=== PATIENT | male | born 2000 | race Two or more races ===

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

== ENCOUNTER 2020-06-21 02:34 | Emergency (ER) | payer SELFPAY ==
[~2020-06-21] VITALS: Ht 175.3 cm; Wt 77.3 kg
[~2020-06-21 02:34] MED LIST: ONDA4TAB10 PO
[2020-06-21] MEDS ORDERED: ACETAMINOPHEN 500 MG TABLET PO ONE (03:00)
[2020-06-21 03:10] LABS: BASO # 0.1 x10^3/uL (0.0-0.2); BASO % 1 % (0-3); EOS # 0.3 x10^3/uL (0.0-0.7); EOS % 3 % (0-3); HEMATOCRIT 49.5 % (39.0-53.0); LYMPH # 4.7 x10^3/uL (1.0-4.8); LYMPH % 40 % (24-48); MEAN CORPUSCULAR HEMOGLOBIN 30 pg (25-35); MEAN CORPUSCULAR HGB CONC 34 g/dL (31-37); MEAN CORPUSCULAR VOLUME 88 fL (79-100); MONO # 0.6 x10^3/uL (0.0-1.1); MONO % 6 % (0-9); NEUT % 51 % (31-73); PLATELET COUNT 300 x10^3/uL (140-400); RED BLOOD COUNT 5.66 x10^6/uL (4.30-5.70); RED CELL DISTRIBUTION WIDTH 13.3 % (11.5-14.5); WHITE BLOOD COUNT 11.6 x10^3/uL (4.0-11.0)
--- NOTE | 2020-06-21 03:30 | RAD ---
EXAM: XR CHEST 2V 06/21/2020 2:59 AM CLINICAL INDICATION: Chest pain COMPARISON: None TECHNIQUE: PA and lateral views of the chest FINDINGS: The heart and mediastinum are normal. Lungs are well-expanded and clear. No consolidatio n, pleural effusion, or pneumothorax. Pulmonary vascularity is normal. The thoracic skeleton is int act. IMPRESSION: Normal chest radiograph. Electronically signed by: Sondra Almazan MD (06/21/2020 3:28 AM) [id number]
[2020-06-21 03:41] LABS: ALBUMIN 4.6 g/dL (3.4-5.0); ALBUMIN/GLOBULIN RATIO 1.3 (1.0-1.7); CALCIUM 9.8 mg/dL (8.5-10.1); CREATININE 1.2 mg/dL (0.7-1.3); POTASSIUM 3.6 mmol/L (3.5-5.1); TOTAL BILIRUBIN 0.5 mg/dL (0.2-1.0); TOTAL PROTEIN 8.2 g/dL (6.4-8.2)
--- NOTE | 2020-06-21 04:34 | PHYS DOC ---
Past Medical History Past Medical History: No Pertinent History Past Surgical History: No Surgical History, Tonsillectomy Smoking Status: Never Smoker Alcohol Use: None Drug Use: None Social History Narrative: Every other day Adult General Chief Complaint Chief Complaint: CHEST PAIN-CARDIAC NATURE HPI HPI Patient is a 19 year old male with no significant past medical history presents emergency department complaining of new onset of chest pain. Patient states he has been having left anterior chest wall pain for approximately 1 week. States it started spontaneously and does not recall any trauma or injury to the area. Describes a sharp pain that over the left anterior chest without radiation. Denies any pleurisy. Denies any history of similar symptoms. Denies any fever, chills, nausea, vomiting, shortness of breath, cough Review of Systems Review of Systems Constitutional: Denies fever or chills [] Eyes: Denies change in visual acuity, redness, or eye pain [] HENT: Denies nasal congestion or sore throat [] Respiratory: Denies cough or shortness of breath [] Cardiovascular: No additional information not addressed in HPI [] GI: Denies abdominal pain, nausea, vomiting, bloody stools or diarrhea [] : Denies dysuria or hematuria [] Musculoskeletal: Denies back pain or joint pain [] Integument: Denies rash or skin lesions [] Neurologic: Denies headache, focal weakness or sensory changes [] Endocrine: Denies polyuria or polydipsia [] All other systems were reviewed and found to be within normal limits, except as documented in this note. Current Medications Current Medications Current Medications Medications (Trade) Dose Ordered Sig/Chad Start Time Stop Time Status Last Admin Dose Admin Acetaminophen (Tylenol) 1,000 mg 1X ONCE 06/21/20 03:00 06/21/20 03:01 DC 06/21/20 03:26 1,000 MG Allergies Allergies Allergies Coded Allergies Type Severity Reaction Last Updated Verified No Known Drug Allergies 05/04/17 No Physical Exam Physical Exam Constitutional: Well developed, well nourished, no acute distress, non-toxic appearance. [] HENT: Normocephalic, atraumatic, bilateral external ears normal, oropharynx moist, no oral exudates, nose normal. [] Eyes: PERRLA, EOMI, conjunctiva normal, no discharge. [] Neck: Normal range of motion, no tenderness, supple, no stridor. [] Cardiovascular:Heart rate regular rhythm, no murmur [] Lungs & Thorax: Bilateral breath sounds clear to auscultation left anterior chest wall tenderness with small area of palpable muscle spasm Abdomen: Bowel sounds normal, soft, no tenderness, no masses, no pulsatile masses. [] Skin: Warm, dry, no erythema, no rash. [] Back: No tenderness, no CVA tenderness. [] Extremities: No tenderness, no cyanosis, no clubbing, ROM intact, no edema. [] Neurologic: Alert and oriented X 3, normal motor function, normal sensory function, no focal deficits noted. [] Psychologic: Affect normal, judgement normal, mood normal. [] Current Patient Data Vital Signs Vital Signs Date Time Temp Pulse Resp B/P (MAP) Pulse Ox O2 Delivery O2 Flow Rate FiO2 06/21/20 02:35 97.6 76 20 178/91 (120) 99 Room Air 97.6 Lab Values Laboratory Tests Test 06/21/20 02:45 White Blood Count 11.6 x10^3/uL (4.0-11.0) H Red Blood Count 5.66 x10^6/uL (4.30-5.70) Hemoglobin 17.0 g/dL (13.0-17.5) Hematocrit 49.5 % (39.0-53.0) Mean Corpuscular Volume 88 fL (79-100) Mean Corpuscular Hemoglobin 30 pg (25-35) Mean Corpuscular Hemoglobin Concent 34 g/dL (31-37) Red Cell Distribution Width 13.3 % (11.5-14.5) Platelet Count 300 x10^3/uL (140-400) Neutrophils (%) (Auto) 51 % (31-73) Lymphocytes (%) (Auto) 40 % (24-48) Monocytes (%) (Auto) 6 % (0-9) Eosinophils (%) (Auto) 3 % (0-3) Basophils (%) (Auto) 1 % (0-3) Neutrophils # (Auto) 6.0 x10^3/uL (1.8-7.7) Lymphocytes # (Auto) 4.7 x10^3/uL (1.0-4.8) Monocytes # (Auto) 0.6 x10^3/uL (0.0-1.1) Eosinophils # (Auto) 0.3 x10^3/uL (0.0-0.7) Basophils # (Auto) 0.1 x10^3/uL (0.0-0.2) Sodium Level 141 mmol/L (136-145) Potassium Level 3.6 mmol/L (3.5-5.1) Chloride Level 103 mmol/L (98-107) Carbon Dioxide Level 25 mmol/L (21-32) Anion Gap 13 (6-14) Blood Urea Nitrogen Pending Creatinine 1.2 mg/dL (0.7-1.3) Estimated GFR (Cockcroft-Gault) 78.0 BUN/Creatinine Ratio 12 (6-20) Glucose Level 98 mg/dL (70-99) Calcium Level 9.8 mg/dL (8.5-10.1) Total Bilirubin 0.5 mg/dL (0.2-1.0) Aspartate Amino Transferase (AST) 22 U/L (15-37) Alanine Aminotransferase (ALT) 23 U/L (16-63) Alkaline Phosphatase 69 U/L (46-116) Total Protein 8.2 g/dL (6.4-8.2) Albumin 4.6 g/dL (3.4-5.0) Albumin/Globulin Ratio 1.3 (1.0-1.7) Lipase 173 U/L (73-393) Laboratory Tests 06/21/20 02:45 Laboratory Tests 06/21/20 02:45 EKG EKG [] Radiology/Procedures Radiology/Procedures [] Course & Med Decision Making Course & Med Decision Making Pertinent Labs and Imaging studies reviewed. (See chart for details) 19M presenting with new onset of left anterior chest wall pain. Less likely to be costochondritis or muscle spasm. Will obtain basic labs and chest x-ray and EKG and reevaluate. 04:32 - Labs and CXR negative, EKG reviewed and unremarkable. at this time will discharge home. I spoken with the patient and her caregivers. I explained the patient's condition, diagnoses and treatment plan based on the information available to me at this time. I have answered the patient and her caregiver's questions and addressed any concerns. The patient and her caregivers have a good understanding of patient's diagnosis, condition and treatment plan as can be expected at this point. Vital signs have been stable. Patient's condition is stable and appropriate for discharge from the emergency department. Patient will pursue further outpatient evaluation with primary care physician or other designated or consulting physician as outlined in the discharge instructions. The patient and/or caregivers are agreeable to this plan of care and follow-up instructions have been explained in detail. The patient and/or caregivers have received these instructions in written form and have expressed an understanding of the discharge instructions. The patient and/or caregivers are aware that any significant change of condition or worsening of symptoms should prompt immediate return to this or the closest emergency department or call to 911. Dragon Disclaimer Dragon Disclaimer This electronic medical record was generated, in whole or in part, using a voice recognition dictation system. Departure Departure Impression: Primary Impression: Chest wall pain Disposition: 01 DC HOME SELF CARE/HOMELESS Condition: GOOD Referrals: DAVID DONOVAN (PCP) Patient Instructions: Chest Wall Pain KALYN STANFORD MD Jun 21, 2020 04:34
[2020-06-21 04:51] VITALS: BP 138/74
--- NOTE | 2020-06-23 16:35 | EKG ---
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
== END 2020-06-21 04:51 | disposition home or self-care (01) ==
LOC: ER 02:34
DX: R07.89 Other chest pain (principal)
CPT/HCPCS: 36415; 71046; 80053; 83690; 85025; 93005; 99285-25

== ENCOUNTER 2020-06-25 18:35 | Observation (INO) | payer SELFPAY ==
[~2020-06-25] VITALS: Ht 175.3 cm; Wt 69.5 kg
--- NOTE | 2020-06-25 20:07 | PHYS DOC ---
Past Medical History Past Medical History: No Pertinent History Past Surgical History: No Surgical History, Tonsillectomy Smoking Status: Never Smoker Alcohol Use: None Drug Use: None Adult General Chief Complaint Chief Complaint: CONSTIPATION HPI HPI Patient is a 19 year old male who denies any significant past medical history presents emergency department complaint of new onset of constipation. Patient states he has not been able to have a significant bowel movement for 5 days. Denies any history of similar symptoms. Denies any nausea, vomiting, fever, c hills. No obstipation. Review of Systems Review of Systems Constitutional: Denies fever or chills [] Eyes: Denies change in visual acuity, redness, or eye pain [] HENT: Denies nasal congestion or sore throat [] Respiratory: Denies cough or shortness of breath [] Cardiovascular: No additional information not addressed in HPI [] GI: Denies abdominal pain, nausea, vomiting, bloody stools or diarrhea [] : Denies dysuria or hematuria [] Musculoskeletal: Denies back pain or joint pain [] Integument: Denies rash or skin lesions [] Neurologic: Denies headache, focal weakness or sensory changes [] Endocrine: Denies polyuria or polydipsia [] All other systems were reviewed and found to be within normal limits, except as documented in this note. Current Medications Current Medications Current Medications Medications (Trade) Dose Ordered Sig/Chad Start Time Stop Time Status Last Admin Dose Admin Polyethylene Glycol (miraLAX PACKET) 17 gm 1X ONCE 06/25/20 21:00 06/25/20 21:01 DC 06/25/20 20:51 17 GM Allergies Allergies Allergies Coded Allergies Type Severity Reaction Last Updated Verified No Known Drug Allergies 05/04/17 No Physical Exam Physical Exam Constitutional: Well developed, well nourished, no acute distress, non-toxic appearance. [] HENT: Normocephalic, atraumatic, bilateral external ears normal, oropharynx moist, no oral exudates, nose normal. [] Eyes: PERRLA, EOMI, conjunctiva normal, no discharge. [] Neck: Normal range of motion, no tenderness, supple, no stridor. [] Cardiovascular:Heart rate regular rhythm, no murmur [] Lungs & Thorax: Bilateral breath sounds clear to auscultation [] Abdomen: Bowel sounds normal, soft, no tenderness, no masses, no pulsatile masses. [] Skin: Warm, dry, no erythema, no rash. [] Back: No tenderness, no CVA tenderness. [] Extremities: No tenderness, no cyanosis, no clubbing, ROM intact, no edema. [] Neurologic: Alert and oriented X 3, normal motor function, normal sensory function, no focal deficits noted. [] Psychologic: Affect normal, judgement normal, mood normal. [] Current Patient Data Vital Signs Vital Signs Date Time Temp Pulse Resp B/P (MAP) Pulse Ox O2 Delivery O2 Flow Rate FiO2 06/25/20 18:35 98.4 130 20 138/78 (98) 99 Room Air 98.4 EKG EKG [] Radiology/Procedures Radiology/Procedures [] Course & Med Decision Making Course & Med Decision Making Pertinent Labs and Imaging studies reviewed. (See chart for details) 19M presenting with new onset of constipation for 5 days. Will obtain an x-ray to confirm there is no significant evidence of small bowel obstruction. This is negative we will treat the patient symptomatic. 21:26 -x-ray does demonstrate some moderate stool burden but no significant air in the rectum. There is some concern for possible fecal impaction with the patient does not have any tenderness to the area. This point will discharge home with further bowel regimen and instructed the patient to return if he has any worsening of his symptoms. Dragon Disclaimer Dragon Disclaimer This electronic medical record was generated, in whole or in part, using a voice recognition dictation system. Departure Departure Impression: Primary Impression: Acute constipation Referrals: DAVID DONOVAN (PCP) Patient Instructions: Constipation, Adult Additional Instructions: EMERGENCY DEPARTMENT GENERAL DISCHARGE INSTRUCTIONS Thank you for coming to [facility] Emergency Department (ED) today and trusting us with you care. We trust that you had a positive experience in our Emergency Department. If you wish to speak to the department management, you may call the Director at [phone]. YOUR FOLLOW UP INSTRUCTIONS ARE FOLLOWS: 1. Do you have a private Doctor? If you do not have a private doctor, please ask for a resource list of physicians or clinics that may be able to assist you with follow up care. 2. The Emergency Physicain has interpreted your x-rays. The X-Ray specialist will also review them. If there is a change in the findings, you will be notified in 48 hours when at all possible. 3. A lab test or culture has been done, your results will be reviewed and you will be notified if you need a change in treatment. ADDITIONAL INSTRUCTIONS AND INFORMATION: 1. Your care today has been supervised by a physician who is specially trained in emergency care. Many problems require more than one evaluation for a complete diagnosis and treatment. We recommend that you schedule your follow up appointment as recommended to ensure complete treatment of you illness or injury. If you are unable to obtain follow up care and continue to have a problem, or if your condition worsens, we recommend that you return to the ED. 2. We are not able to safely determine your condition over the phone nor are we able to give sound medical advice over the phone. For these safety reasons, if you call for medical advice we will ask you to come to the ED for further evaluation. 3. If you have any questions regarding these discharge instructions please call the ED at [phone]. SAFETY INFORMATION: In the interest of safety, wellness, and injury prevention; we encourage you to wear your sealbelt, if you smoke; quite smoking, and we encourage family to use a protective helmet for bicycling and other sporting events that present an increased risk for head injury. IF YOUR SYMPTOMS WORSEN OR NEW SYMPTOMS DEVELOP, OR YOU HAVE CONCERNS ABOUT YOUR CONDITION; OR IF YOUR CONDITION WORSENS WHILE YOU ARE WAITING FOR YOUR FOLLOW UP AP POINTMENT; EITHER CONTACT YOUR PRIMARY CARE DOCTOR, THE PHYSICIAN WHOSE NAME AND NUMBER YOU WERE GIVEN, OR RETURN TO THE ED IMMEDIATELY. Scripts Polyethylene Glycol 3350 (MIRALAX) 119 Gm Powder 17 GM PO BID for constipation, #527 GM 0 Refills dissolve in water Prov: KALYN STANFORD MD 06/25/20 KALYN STANFORD MD Jun 25, 2020 20:07
--- NOTE | 2020-06-25 20:19 | RAD ---
EXAM: Supine AP view of the abdomen DATE: 06/25/2020 8:07 PM INDICATION: constipation COMPARISON: No Prior FINDINGS: No abnormal small or large bowel dilatation. Moderate colonic stool content. No abnormal soft tissu e mass effect. No suspicious calcifications are seen. Evaluation for free intraperitoneal gas is li mited on this supine exam. IMPRESSION: 1. No evidence for bowel obstruction. 2. Moderate colonic stool content. Electronically signed by: Lico Rush MD (06/25/2020 8:16 PM) [facility]
[2020-06-25] MEDS ORDERED: POLYETHYLENE GLYCOL 3350 17 GM PACKET. PO ONE (21:00)
[2020-06-25] MEDS ORDERED: POLY119P4 PO (21:32)
[2020-06-25 23:01] LABS: BASO % 0 % (0-3); EOS # 0.1 x10^3/uL (0.0-0.7); EOS % 1 % (0-3); HEMATOCRIT 48.9 % (39.0-53.0); HEMOGLOBIN 16.7 g/dL (13.0-17.5); LYMPH # 2.4 x10^3/uL (1.0-4.8); LYMPH % 20 % (24-48); MEAN CORPUSCULAR HEMOGLOBIN 30 pg (25-35); MEAN CORPUSCULAR HGB CONC 34 g/dL (31-37); MEAN CORPUSCULAR VOLUME 87 fL (79-100); MONO # 0.5 x10^3/uL (0.0-1.1); MONO % 5 % (0-9); NEUT % 75 % (31-73); PLATELET COUNT 322 x10^3/uL (140-400); RED BLOOD COUNT 5.63 x10^6/uL (4.30-5.70); RED CELL DISTRIBUTION WIDTH 13.4 % (11.5-14.5); WHITE BLOOD COUNT 12.1 x10^3/uL (4.0-11.0)
[2020-06-25 23:11] LABS: CALCIUM 10.8 mg/dL (8.5-10.1); CREATININE 1.2 mg/dL (0.7-1.3); POTASSIUM 3.7 mmol/L (3.5-5.1)
[2020-06-25 23:16] LABS: ALBUMIN 5.1 g/dL (3.4-5.0); ALBUMIN/GLOBULIN RATIO 1.4 (1.0-1.7); MAGNESIUM 1.9 mg/dL (1.8-2.4); TOTAL BILIRUBIN 0.8 mg/dL (0.2-1.0); TOTAL PROTEIN 8.7 g/dL (6.4-8.2)
[2020-06-25] MEDS ORDERED: IV NORMAL SALINE 1000ML BAG 1,000 ML IV ONE (23:30)
[2020-06-25] MEDS ORDERED: ACETAMINOPHEN 500 MG TABLET PO ONE (23:30)
--- NOTE | 2020-06-25 23:43 | RAD ---
XR CHEST 1V Clinical Indication: Reason: chest pain /two-view chest, Comparison: Two-view chest June 21, 2020. Findings: The cardiomediastinal silhouette is normal. Lungs are clear. There is no pneumothorax. No pleural eff usion is appreciated. No acute bone abnormality. IMPRESSION: No acute cardiopulmonary process. Electronically signed by: Dinesh Ramon MD (06/25/2020 11:41 PM) [facility]
[2020-06-26 00:05] LABS: SALIC < 2.8 mg/dL (2.8-20.0)
[2020-06-26 00:08] LABS: BARBITURATES NEG (NEG); BENZODIAZEPINES NEG (NEG); CANNABINOIDS POS (NEG); COCAINE NEG (NEG); METHADONE NEG (NEG); OPIATES NEG (NEG); PHENCYCLIDINE NEG (NEG)
[2020-06-26 00:11] LABS: AMPHETAMINE/METHAMPHETAMINE NEG (NEG)
[2020-06-26] MEDS ORDERED: MORPHINE SULFATE 4 MG/ML VIAL. IV ONE (00:15)
[2020-06-26] MEDS ORDERED: CONTRAST GIVEN. MC PRN (01:00)
[2020-06-26] MEDS ORDERED: IOHEXOL 300 MG/ML 100ML VIAL. IV ONE (01:30)
--- NOTE | 2020-06-26 01:31 | RAD ---
PQRS Compliance Statement: One or more of the following individualized dose reduction techniques were utilized for this examinat ion: 1. Automated exposure control 2. Adjustment of the mA and/or kV according to patient size 3. Use of iterative reconstruction technique CT CHEST+ABD+PELVIS W Clinical Indication: Reason: chest pain, constipation Comparison: CT abdomen and pelvis with contrast, May 04, 2017. Technique: Helical CT imaging of the abdomen and pelvis is performed after 75 cc of Omnipaque 300 IV contrast. Oral contrast not administered. Findings: Thyroid is symmetric. Residual thymus in the anterior mediastinum. The great vessels are normal calib er. There is no adenopathy in the chest. Cardiac size normal, no pericardial effusion. The central airways are patent. No pleural abnormality. The lungs are clear. The liver, gallbladder, spleen, pancreas, adrenal glands, abdominal aorta, and kidneys are normal. No obvious abnormality of the stomach. There is no dilated small bowel. Sigmoid colon is decompressed , limiting evaluation. No colon wall thickening is identified. The appendix is not identified, no sec ondary signs of appendicitis. There is no abdominal adenopathy or free fluid. Urinary bladder is normal. The prostate and seminal vesicles are normal. Thoracolumbar spine alignment is maintained. No acute bone abnormality. IMPRESSION: No acute abnormality of the chest, abdomen, or pelvis. Electronically signed by: Dinesh Ramon MD (06/26/2020 1:29 AM) [facility]
[2020-06-26 02:16] LABS: CALCIUM 9.6 mg/dL (8.5-10.1); CREATININE 1.2 mg/dL (0.7-1.3); POTASSIUM 4.2 mmol/L (3.5-5.1)
[2020-06-26 02:21] LABS: ALBUMIN 4.3 g/dL (3.4-5.0); ALBUMIN/GLOBULIN RATIO 1.3 (1.0-1.7); TOTAL BILIRUBIN 0.7 mg/dL (0.2-1.0); TOTAL PROTEIN 7.5 g/dL (6.4-8.2)
[2020-06-26] MEDS ORDERED: ACETAMINOPHEN 500 MG TABLET PO ONE (02:30)
[2020-06-26] MEDS ORDERED: ONDANSETRON PF 4 MG/2 ML VIAL. IV PRN (02:45)
[2020-06-26] MEDS ORDERED: MORPHINE SULFATE 4 MG/ML VIAL. IV PRN (02:45)
[2020-06-26 03:20] VITALS: BP 152/80
[2020-06-26] MEDS ORDERED: ALPRAZolam 1 MG TABLET PO PRN (04:30)
[2020-06-26] MEDS ORDERED: MAGNESIUM CITRATE 296 ML SOLUTION. PO ONE (05:00)
--- NOTE | 2020-06-26 05:23 | EKG ---
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
[2020-06-26 07:00] VITALS: BP 140/76
[2020-06-26] MEDS ORDERED: ACETAMINOPHEN 325 MG TABLET. PO PRN (10:15)
[2020-06-26 11:00] VITALS: BP 149/61
--- NOTE | 2020-06-26 11:47 | PDOC2 ---
GI CONSULT Date of Service: DATE: 06/26/20 TIME: 11:47 Reason For Consult: constipation HPI: HPI: 19 y/o male to ER last night w/ lower abdominal pain and constipation x 5 days. Apparently issues w/ tachycardia and left chest pain after taking Miralax and Mag Citrate (drank half a bottle), admitted to see cardiology. Since admission has had one "pretty good" stool. No change in abdominal discomfort. No h/o constipation. Denies precipitating events. No reflux, dysphagia, n/v, chronic abd pain, hematochezia, melena, bloating, change in appetite (eats once a day because sleeps til 3:00 p.m. and goes to bed at 4:0 a.m.) or weight loss. No previous EGD or colonoscopy. No GB, liver, pancreas, or PUD history. No NSAIDs. Daily marijuana. Mother Gissel present. FH: Family History: Cancer (MGM - CLL) Social History: Smoke: No ALCOHOL: none Drugs: Marijuana (daily) ROS: GEN: Denies fevers, chills, sweats HEENT: Denies blurred vision, sore throat CV: +CP RESP: Denies shortness of air, cough GI: Per HPI : Denies hematuria, dysuria ENDO: Denies weight changes NEURO: Denies confusion, dizziness MSK: Denies weakness, joint pain/swelling SKIN: Denies jaundice, pruritus Vitals: Vitals: Vital Signs Date Time Temp Pulse Resp B/P (MAP) Pulse Ox O2 Delivery O2 Flow Rate FiO2 06/26/20 07:00 96.8 106 20 140/76 (97) 100 Room Air 96.8 Labs: Labs: Laboratory Tests Test 06/25/20 19:05 06/25/20 22:40 06/26/20 02:00 Urine Opiates Screen Neg (NEG) Urine Methadone Screen Neg (NEG) Urine Barbiturates Neg (NEG) Urine Phencyclidine Screen Neg (NEG) Urine Amphetamine/Methamphetamine Neg (NEG) Urine Benzodiazepines Screen Neg (NEG) Urine Cocaine Screen Neg (NEG) Urine Cannabinoids Screen Pos (NEG) Urine Ethyl Alcohol Neg (NEG) White Blood Count 12.1 x10^3/uL (4.0-11.0) Red Blood Count 5.63 x10^6/uL (4.30-5.70) Hemoglobin 16.7 g/dL (13.0-17.5) Hematocrit 48.9 % (39.0-53.0) Mean Corpuscular Volume 87 fL (79-100) Mean Corpuscular Hemoglobin 30 pg (25-35) Mean Corpuscular Hemoglobin Concent 34 g/dL (31-37) Red Cell Distribution Width 13.4 % (11.5-14.5) Platelet Count 322 x10^3/uL (140-400) Neutrophils (%) (Auto) 75 % (31-73) Lymphocytes (%) (Auto) 20 % (24-48) Monocytes (%) (Auto) 5 % (0-9) Eosinophils (%) (Auto) 1 % (0-3) Basophils (%) (Auto) 0 % (0-3) Neutrophils # (Auto) 9.0 x10^3/uL (1.8-7.7) Lymphocytes # (Auto) 2.4 x10^3/uL (1.0-4.8) Monocytes # (Auto) 0.5 x10^3/uL (0.0-1.1) Eosinophils # (Auto) 0.1 x10^3/uL (0.0-0.7) Basophils # (Auto) 0.0 x10^3/uL (0.0-0.2) D-Dimer (Sowmya) < 0.27 ug/mlFEU Sodium Level 141 mmol/L (136-145) 139 mmol/L (136-145) Potassium Level 3.7 mmol/L (3.5-5.1) 4.2 mmol/L (3.5-5.1) Chloride Level 101 mmol/L (98-107) 102 mmol/L (98-107) Carbon Dioxide Level 21 mmol/L (21-32) 20 mmol/L (21-32) Anion Gap 19 (6-14) 17 (6-14) Blood Urea Nitrogen 12 mg/dL (8-26) 13 mg/dL (8-26) Creatinine 1.2 mg/dL (0.7-1.3) 1.2 mg/dL (0.7-1.3) Estimated GFR (Cockcroft-Gault) 78.0 78.0 BUN/Creatinine Ratio 10 (6-20) 11 (6-20) Glucose Level 75 mg/dL (70-99) 93 mg/dL (70-99) Lactic Acid Level 1.5 mmol/L (0.4-2.0) Calcium Level 10.8 mg/dL (8.5-10.1) 9.6 mg/dL (8.5-10.1) Magnesium Level 1.9 mg/dL (1.8-2.4) Total Bilirubin 0.8 mg/dL (0.2-1.0) 0.7 mg/dL (0.2-1.0) Aspartate Amino Transf (AST/SGOT) 15 U/L (15-37) 16 U/L (15-37) Alanine Aminotransferase (ALT/SGPT) 19 U/L (16-63) 18 U/L (16-63) Alkaline Phosphatase 69 U/L (46-116) 62 U/L (46-116) Troponin I Quantitative < 0.017 ng/mL (0.000-0.055) < 0.017 ng/mL (0.000-0.055) Total Protein 8.7 g/dL (6.4-8.2) 7.5 g/dL (6.4-8.2) Albumin 5.1 g/dL (3.4-5.0) 4.3 g/dL (3.4-5.0) Albumin/Globulin Ratio 1.4 (1.0-1.7) 1.3 (1.0-1.7) Salicylates Level < 2.8 mg/dL (2.8-20.0) Salicylate Last Dose Date Unk Salicylate Last Dose Time Unk Thyroid Stimulating Hormone (TSH) 0.714 uIU/mL (0.358-3.74) Allergies: Coded Allergies: No Known Drug Allergies (Unverified , 05/04/17) Medications: Current Medications Medications (Trade) Dose Ordered Sig/Chad Route PRN Reason Start Time Stop Time Status Last Admin Dose Admin Polyethylene Glycol (miraLAX PACKET) 17 gm 1X ONCE PO 06/25/20 21:00 06/25/20 21:01 DC 06/25/20 20:51 Sodium Chloride 1,000 ml @ 1,000 mls/hr 1X ONCE IV 06/25/20 23:30 06/26/20 00:29 DC 06/25/20 22:40 Acetaminophen (Tylenol) 1,000 mg 1X ONCE PO 06/25/20 23:30 06/25/20 23:31 DC 06/25/20 23:25 Morphine Sulfate (Morphine Sulfate) 4 mg 1X ONCE IV 06/26/20 00:15 06/26/20 00:16 DC 06/26/20 00:10 Iohexol (Omnipaque 300 Mg/ml) 75 ml 1X ONCE IV 06/26/20 01:30 06/26/20 01:31 DC 06/26/20 00:55 Acetaminophen (Tylenol) 1,000 mg 1X ONCE PO 06/26/20 02:30 06/26/20 02:31 DC 06/26/20 02:00 Alprazolam (Xanax) 1 mg PRN Q8HRS PRN PO ANXIETY / AGITATION 06/26/20 04:30 06/26/20 04:50 Magnesium Citrate (Citroma) 296 ml 1X ONCE PO 06/26/20 05:00 06/26/20 05:02 DC 06/26/20 04:50 Imaging: Imaging: KUB IMPRESSION: 1. No evidence for bowel obstruction. 2. Moderate colonic stool content. CXR IMPRESSION: No acute cardiopulmonary process. C/A/P CT IMPRESSION: No acute abnormality of the chest, abdomen, or pelvis. PE: GEN: NAD - eating biscuits and gravy and eggs HEENT: Atraumatic, PERRL LUNGS: CTAB HEART: RRR when I saw - note some tachycardia in chart ABD: good BS, soft, non-distended, non-specifically tender (?MSK) EXTREMITY: No edema SKIN: No rashes, no jaundice NEURO/PSYCH: A & O 3 A/P: A/P: Lower abdominal pain, new constipation Tachycardia CRC screen - average risk +marijuana -- Labs and imaging unrevealing. Has stooled since admission. Can discuss care home constipation treatment if needed - pt/mother puzzled re: tachycardia after laxatives - will review if any correlation w/ Dr. Costa. Continue per cardiology, primary. RASHAWN MCKINLEY Jun 26, 2020 11:47
--- NOTE | 2020-06-26 12:59 | PDOC2 ---
CARDIAC CONSULT DATE OF CONSULT Date of Consult DATE: 06/26/20 TIME: 12:44 REASON FOR CONSULT Reason for Consult: Chest pain REFERRING PHYSICIAN Referring Physician: Rika SOURCE Source: Chart review, Patient HISTORY OF PRESENT ILLNESS HISTORY OF PRESENT ILLNESS This is a pleasant 19 yo male admitted for complains of constipation. He has not had any BM for almost a week and his appetite has decreased and has tried s everal laxatives including enema, stool softeners and stimulants. No nausea or vomiting. He was in ED and was treated with miralax then Mg citrate and drank half that bottle when he started becoming tachycardic in the 130s prompting him to get admitted for further evaluation including complains of chest pain. Denies any exertional dyspnea nor any chest pain at home. Denies any heartburn. His chest pain is sharp that went to his left chest. This was the same discomfort he had about a week ago when he was in ED not suspected as cardiac. His chest presentation appears to be the same and atypical. He does have occasional palpitations but does not check pulse when this happens. No associated dizziness or passing out. He does however smokes marijuana daily and does not work and plays basketball without difficulty. No ETOH nor any high energy drinks and his mother is in the room ascertained his details. No family history of cardiac related history. He does not take any routine medications. No recent falls or any heavy lifting or MVA. PAST MEDICAL HISTORY Past Medical History No pertinent history PAST SURGICAL HISTORY Past Surgical History: Tonsillectomy FAMILY HISTORY Family History noncontributory to CV SOCIAL HISTORY Smoke: No ALCOHOL: none Drugs: Marijuana Lives: with Family CURRENT MEDICATIONS CURRENT MEDICATIONS Current Medications Medications (Trade) Dose Ordered Sig/Chad Route PRN Reason Start Time Stop Time Status Last Admin Dose Admin Polyethylene Glycol (miraLAX PACKET) 17 gm 1X ONCE PO 06/25/20 21:00 06/25/20 21:01 DC 06/25/20 20:51 Sodium Chloride 1,000 ml @ 1,000 mls/hr 1X ONCE IV 06/25/20 23:30 06/26/20 00:29 DC 06/25/20 22:40 Acetaminophen (Tylenol) 1,000 mg 1X ONCE PO 06/25/20 23:30 06/25/20 23:31 DC 06/25/20 23:25 Morphine Sulfate (Morphine Sulfate) 4 mg 1X ONCE IV 06/26/20 00:15 06/26/20 00:16 DC 06/26/20 00:10 Iohexol (Omnipaque 300 Mg/ml) 75 ml 1X ONCE IV 06/26/20 01:30 06/26/20 01:31 DC 06/26/20 00:55 Acetaminophen (Tylenol) 1,000 mg 1X ONCE PO 06/26/20 02:30 06/26/20 02:31 DC 06/26/20 02:00 Alprazolam (Xanax) 1 mg PRN Q8HRS PRN PO ANXIETY / AGITATION 06/26/20 04:30 06/26/20 04:50 Magnesium Citrate (Citroma) 296 ml 1X ONCE PO 06/26/20 05:00 06/26/20 05:02 DC 06/26/20 04:50 ALLERGIES ALLERGIES: Coded Allergies: No Known Drug Allergies (Unverified , 05/04/17) ROS Review of System 14 point ROS evaluated with pertinent positives noted per HPI PHYSICAL EXAM General: Alert, Oriented X3, Cooperative HEENT: Atraumatic, Mucous membr. moist/pink Lungs: Clear to auscultation, Normal air movement Heart: Regular rate (SR), Normal S1, Normal S2, Other (2-3/6 systolic murmur to CANDELARIO border) Skin: No breakdown, No significant lesion Neuro: Normal speech, Sensation intact Psych/Mental Status: Mental status NL, Mood NL MUSCULOSKELETAL: Full range of motion without pain VITALS/I&O VITALS/I&O: Vital Signs Date Time Temp Pulse Resp B/P (MAP) Pulse Ox O2 Delivery O2 Flow Rate FiO2 06/26/20 11:00 97.3 87 20 149/61 (90) 98 Room Air 97.3 I & O 06/25/20 06/25/20 06/26/20 15:00 23:00 07:00 Intake Total 1050 ml Balance 1050 ml LABS Lab: Laboratory Tests Test 06/25/20 19:05 06/25/20 22:40 06/26/20 02:00 Urine Opiates Screen Neg (NEG) Urine Methadone Screen Neg (NEG) Urine Barbiturates Neg (NEG) Urine Phencyclidine Screen Neg (NEG) Urine Amphetamine/Methamphetamine Neg (NEG) Urine Benzodiazepines Screen Neg (NEG) Urine Cocaine Screen Neg (NEG) Urine Cannabinoids Screen Pos (NEG) Urine Ethyl Alcohol Neg (NEG) White Blood Count 12.1 x10^3/uL (4.0-11.0) H Red Blood Count 5.63 x10^6/uL (4.30-5.70) Hemoglobin 16.7 g/dL (13.0-17.5) Hematocrit 48.9 % (39.0-53.0) Mean Corpuscular Volume 87 fL (79-100) Mean Corpuscular Hemoglobin 30 pg (25-35) Mean Corpuscular Hemoglobin Concent 34 g/dL (31-37) Red Cell Distribution Width 13.4 % (11.5-14.5) Platelet Count 322 x10^3/uL (140-400) Neutrophils (%) (Auto) 75 % (31-73) H Lymphocytes (%) (Auto) 20 % (24-48) L Monocytes (%) (Auto) 5 % (0-9) Eosinophils (%) (Auto) 1 % (0-3) Basophils (%) (Auto) 0 % (0-3) Neutrophils # (Auto) 9.0 x10^3/uL (1.8-7.7) H Lymphocytes # (Auto) 2.4 x10^3/uL (1.0-4.8) Monocytes # (Auto) 0.5 x10^3/uL (0.0-1.1) Eosinophils # (Auto) 0.1 x10^3/uL (0.0-0.7) Basophils # (Auto) 0.0 x10^3/uL (0.0-0.2) D-Dimer (Sowmya) < 0.27 ug/mlFEU Sodium Level 141 mmol/L (136-145) 139 mmol/L (136-145) Potassium Level 3.7 mmol/L (3.5-5.1) 4.2 mmol/L (3.5-5.1) Chloride Level 101 mmol/L (98-107) 102 mmol/L (98-107) Carbon Dioxide Level 21 mmol/L (21-32) 20 mmol/L (21-32) L Anion Gap 19 (6-14) H 17 (6-14) H Blood Urea Nitrogen 12 mg/dL (8-26) 13 mg/dL (8-26) Creatinine 1.2 mg/dL (0.7-1.3) 1.2 mg/dL (0.7-1.3) Estimated GFR (Cockcroft-Gault) 78.0 78.0 BUN/Creatinine Ratio 10 (6-20) 11 (6-20) Glucose Level 75 mg/dL (70-99) 93 mg/dL (70-99) Lactic Acid Level 1.5 mmol/L (0.4-2.0) Calcium Level 10.8 mg/dL (8.5-10.1) H 9.6 mg/dL (8.5-10.1) Magnesium Level 1.9 mg/dL (1.8-2.4) Total Bilirubin 0.8 mg/dL (0.2-1.0) 0.7 mg/dL (0.2-1.0) Aspartate Amino Transferase (AST) 15 U/L (15-37) 16 U/L (15-37) Alanine Aminotransferase (ALT) 19 U/L (16-63) 18 U/L (16-63) Alkaline Phosphatase 69 U/L (46-116) 62 U/L (46-116) Troponin I Quantitative < 0.017 ng/mL (0.000-0.055) < 0.017 ng/mL (0.000-0.055) Total Protein 8.7 g/dL (6.4-8.2) H 7.5 g/dL (6.4-8.2) Albumin 5.1 g/dL (3.4-5.0) H 4.3 g/dL (3.4-5.0) Albumin/Globulin Ratio 1.4 (1.0-1.7) 1.3 (1.0-1.7) Salicylates Level < 2.8 mg/dL (2.8-20.0) L Salicylate Last Dose Date Unk Salicylate Last Dose Time Unk Thyroid Stimulating Hormone (TSH) 0.714 uIU/mL (0.358-3.74) Laboratory Tests 06/25/20 22:40 Laboratory Tests 06/25/20 22:40 06/26/20 02:00 ASSESSMENT/PLAN ASSESSMENT/PLAN 1. Atypical Chest pain: possibly MSK 2. Constipation: GI following 3. Substance abuse: daily marijuana use. ?laced marijuana 4. Palpitations 5. Abnormal EKG: possible LVH with STEPHANIE 6. Reported tachycardia: no strips. 130s possibly reactive sinus tachycardia occurred while ingesting mg citrate 7. Anion gap metabolic acidosis and leukocytosis: etiology unclear per PCP Recommendations 1. TSH, TTE 2. Depending on TTE result, if palpitations continues after complete cessation of marijuana then may consider outpt event monitor 3. Encouraged marijuana cessation. 4. Supportive care [facility] Jun 26, 2020 12:59
--- NOTE | 2020-06-26 13:19 | HP ---
ADMIT DATE: 06/26/2020 CHIEF COMPLAINT: Constipation and chest discomfort. HISTORY OF PRESENT ILLNESS: The patient is a pleasant 19-year-old male who presented to the ER last night. His mom brought him in because he has not had a bowel movement for 5 days. While he was in the ER, they noticed that he developed tachycardia into the 130s. He then developed some chest pain. The patient has now been admitted for chest pain and constipation. PAST MEDICAL HISTORY: Tonsillectomy. ALLERGIES: None. FAMILY HISTORY: Diabetes. SOCIAL HISTORY: Does not drink, smoke or take drugs. He is considering going to college. MEDICATIONS: Reviewed, please refer to the MRAD. REVIEW OF SYSTEMS: GENERAL: No history of weight change, weakness or fevers. SKIN: No bruising, hair changes or rashes. EYES: No blurred, double or loss of vision. NOSE AND THROAT: No history of nosebleeds, hoarseness or sore throat. HEART: No history of palpitations, chest pain or shortness of breath on exertion. LUNGS: Denies cough, hemoptysis, wheezing or shortness of breath. GASTROINTESTINAL: He complains of constipation. GENITOURINARY: No history of frequency, urgency, hesitancy or nocturia. NEUROLOGIC: Denies history of numbness, tingling, tremor or weakness. PSYCHIATRIC: No history of panic, anxiety or depression. ENDOCRINE: No history of heat or cold intolerance, polyuria or polydipsia. EXTREMITIES: Denies muscle weakness, joint pain, pain on walking or stiffness. PHYSICAL EXAMINATION: VITALS: Within normal limits and are stable. GENERAL: No apparent distress. Alert and oriented. HEENT: Normal cephalic atraumatic, external auditory canals are patent EYES: Extraocular muscles are intact, pupils are equally round and reactive to light and accommodation MUSCULOSKELETAL: Well developed, well nourished, good range of motion ENDOCRINE: No thyromegaly was palpated LYMPHATICS: No cervical chain or axillary nodes were noted HEMATOPOIETIC: No bruising NECK: Supple, no JVD, no thyromegaly was noted. LUNGS: Clear to auscultation in all lung castillo without rhonchi or wheezing. HEART: RRR, S1, S2 present. Peripheral pulses intact, no obvious murmurs were noted. ABDOMEN: He has decreased bowel sounds. EXTREMITIES: Without any cyanosis, clubbing, or edema. Pedal pulses intact, Homans sign is negative. NEUROLOGIC: Normal speech, normal tone. A and O x 3, moves all extremities, no obvious focal deficits. PSYCHIATRIC: Normal affect, normal mood. Stable. SKIN: No ulcerations or rashes, good skin turgor, no jaundice. VASCULAR: Good capillary refill, neurovascular bundle appears to be intact. LABORATORY DATA: White count is 12. Electrolytes are normal other than a CO2 of 20 and a bicarb of 17. Drug screen was positive for cannabinoids. D-dimer normal at 0.27. KUB, moderate colonic stool content. Chest x-ray, no acute cardiopulmonary process. CT of the abdomen showed no acute disease. ASSESSMENT AND PLAN: Chest pain and constipation. The patient has been admitted. We consulted Cardiology and GI. Serial enzymes, serial EKGs, cardiac monitoring, home meds, deep venous thrombosis prophylaxis. Full code. I did try a bottle of mag citrate, but that did not seem to make him move his bowels yet, suspect he might need a more aggressive approach such as perhaps an enema or maybe some GoLYTELY. We will await GI's input. Trend labs. PANCHITO SAINI DO DR: CHRISTIN/fran JOB#: [id number] / [id number]
--- NOTE | 2020-06-26 13:36 | NUR ---
SS following for discharge planning. SS reviewed pt chart and discussed with pt RN. Pt is from home and is currently on room air. Pt positive for THC. Self pay. Per RN, pt having constipation and chest pain. PAT team referral made for substance use. Discharge plan is to home when medically ready. SS will continue to follow for discharge planning.
[2020-06-26 15:00] VITALS: BP 145/68
--- NOTE | 2020-06-26 16:30 | CARD ---
MR#: [id number] Date of Study: 06/26/2020 Ordering Physician: FOREST RICKETTS, Referring Physician: FOREST RICKETTS Tech: Mar Rider [facility] APPROVED REPORT EXAM: Two-dimensional and M-mode echocardiogram with Doppler and color Doppler. Other Information Quality : GoodHR: 90bpm Rhythm : NSR INDICATION Palpitations 2D DIMENSIONS RVDd2.9 (2.9-3.5cm)Left Atrium(2D)2.8 (1.6-4.0cm) IVSd1.0 (0.7-1.1cm)Aortic Root(2D)3.0 (2.0-3.7cm) LVDd4.1 (3.9-5.9cm)LVOT Diameter2.2 (1.8-2.4cm) PWd1.0 (0.7-1.1cm)IVSs1.2 (0.8-1.2cm) LVDs2.6 (2.5-4.0cm)FS (%) 37.0 % PWs1.4 (0.8-1.2cm)SV49.5 ml Aortic Valve AoV Peak Zak.149.1cm/sAoV VTI25.0cm AO Peak GR.8.9mmHgLVOT Peak Zak.133.8cm/s LVOT VTI 24.49cmAO Mean GR.5mmHg KOBE (VMAX)2.34mz1MEF (VTI)3.71cm2 Mitral Valve MV E Uxkfihjo68.2cm/sMV DECEL QCET777ko MV A Vhlyaago10.9cm/sMV [id number] E/A Ratio1.7MVA (PHT)2.95cm2 TDI E/Lateral E'3.5E/Medial E'5.7 Pulmonary Vein S1 Aspwwnfz35.5cm/sD2 Mbpunhsy32.8cm/s PVa [id number] LEFT VENTRICLE The left ventricle is normal size. There is normal left ventricular wall thickness. The left ventricu lar systolic function is normal and the ejection fraction is within normal range. Estimated ejection fraction 60-65%. There is normal LV segmental wall motion. RIGHT VENTRICLE The right ventricle is normal size. There is normal right ventricular wall thickness. The right ventr icular systolic function is normal. ATRIA The left atrium size is normal. The right atrium size is normal. The interatrial septum is intact wit h no evidence for an atrial septal defect or patent foramen ovale as noted on 2-D or Doppler imaging. AORTIC VALVE The aortic valve is normal in structure and function. Doppler and Color Flow revealed no significant aortic regurgitation. There is no significant aortic valvular stenosis. MITRAL VALVE The mitral valve is normal in structure and function. There is no evidence of mitral valve prolapse. There is no mitral valve stenosis. Doppler and Color Flow revealed no mitral valve regurgitation note d. TRICUSPID VALVE The tricuspid valve is normal in structure and function. Doppler and Color Flow revealed no tricuspid valve regurgitation noted. There is no tricuspid valve prolapse or vegetation. There is no tricuspid valve stenosis. PULMONIC VALVE The pulmonary valve is normal in structure and function. Doppler and Color Flow revealed no pulmonic valvular regurgitation. GREAT VESSELS The aortic root is normal in size. The ascending aorta is normal in size. The IVC is normal in size a nd collapses >50% with inspiration. PERICARDIAL EFFUSION There is no evidence of significant pericardial effusion. Critical Notification Critical Value: No <Conclusion> The left ventricle is normal size. The left ventricular systolic function is normal and the ejection fraction is within normal range. Estimated ejection fraction 60-65%. Doppler and Color Flow revealed no significant aortic regurgitation. There is no significant aortic valvular stenosis. Doppler and Color Flow revealed no mitral valve regurgitation noted. Doppler and Color Flow revealed no tricuspid valve regurgitation noted. Signed by : Alvino Harris MD Electronically Approved : 06/26/2020 16:29:47
--- NOTE | 2020-06-26 16:55 | NUR ---
Discharge Note: ARIES QUIÑONEZ [address] Discharge instructions and discharge home medications reviewed with Patient and a copy given. All questions have been answered and understanding verbalized. The following instructions and handouts were given: constipation, high fiber diet, and follow up instructions. Discontinued lines and drains: peripheral IV discontinued. Patient discharged to home via ambulation accompanied by wheelchair.
--- NOTE | 2020-06-27 08:56 | DS ---
DATE OF DISCHARGE: 06/26/2020 ADMISSION DIAGNOSES: Constipation and chest pain. DISCHARGE DIAGNOSES: Atypical chest pain, suspect musculoskeletal, resolving constipation, marijuana use, palpitations. CONSULTS: Cardiology. PROCEDURES: None. HOSPITAL COURSE: The patient is a pleasant 19-year-old healthy male who basically presented with constipation. While he was in the ER, he also developed some chest pain. We admitted the patient. We consulted GI and Cardiology. His workup was negative. I did give him a bottle of magnesium citrate and he did start having bowel movements. Yesterday, he was doing well. We discharged to home. DISPOSITION: Home. ACTIVITY: As tolerated. DIET: Low sodium. MEDICATIONS: Please see the MRAD. TOTAL TIME: 34 minutes. PANCHITO SAINI DO DR: CHRISTIN/fran JOB#: [id number] / [id number]
== END 2020-06-26 16:59 | disposition home or self-care (01) ==
LOC: ER 18:35 → 2 SOUTH 06-26 02:41
PROVIDERS: ADMIT Internal Medicine; ATTEND Internal Medicine
DX: R07.89 Other chest pain (principal); K59.00 Constipation, unspecified; R00.0 Tachycardia, unspecified; F12.10 Cannabis abuse, uncomplicated; D72.829 Elevated white blood cell count, unspecified; E87.2 Acidosis; R94.31 Abnormal electrocardiogram [ECG] [EKG]; Z90.49 Acquired absence of other specified parts of digestive tract; Z79.899 Other long term (current) drug therapy
CPT/HCPCS: 36415; 71045; 71260; 74018; 74177; 80053; 80307; 80329; 83605; 83735; 84443; 84484; 85025; 85379; 93005; 93306; 96361; 96374; 99284; G0378; J2270; J7030; Q9967; G0379; G0480

== ENCOUNTER 2020-10-16 23:49 | Emergency (ER) | payer SELFPAY ==
[~2020-10-16] VITALS: Ht 175.3 cm; Wt 70.0 kg
[~2020-10-16 23:49] MED LIST changes: +POLY119P4 PO
[2020-10-17 00:14] LABS: BILIRUBIN,URINE NEGATIVE (NEG); CLARITY,URINE CLEAR; COLOR,URINE YELLOW; NITRITE,URINE NEGATIVE (NEG); PROTEIN,URINE NEGATIVE (NEG-TRACE); UROBILINOGEN,URINE 0.2 mg/dL (0.2 mg/dL)
[2020-10-17 00:18] VITALS: BP 158/70
[2020-10-17 00:24] LABS: BACTERIA,URINE 0 /HPF (0-FEW); RBC,URINE 0 /HPF (0-2); WBC,URINE OCC /HPF (0-4)
--- NOTE | 2020-10-17 00:32 | PHYS DOC ---
Past Medical History Past Medical History: Constipation Past Surgical History: No Surgical History, Tonsillectomy Smoking Status: Never Smoker Alcohol Use: None Drug Use: None General Adult EDM: Chief Complaint: ABDOMINAL PAIN HPI: HPI: Patient is a 19 year old male presents with a chief complaint abdominal pain. Patient states abdominal pain has been ongoing for 3 days. Patient's pain primarily left upper quadrant. Patient denies any associated nausea or vomiting or diarrhea. Patient states he has been passing gas and had a normal stool today. Patient states has a past medical history of constipation and current pain feels similar to previous constipation episodes. On exam patient's abdomen is soft without rebound or guarding. Review of Systems: Review of Systems: Constitutional: Denies fever or chills. [] Eyes: Denies change in visual acuity. [] HENT: Denies nasal congestion or sore throat. [] Respiratory: Denies cough or shortness of breath. [] Cardiovascular: Denies chest pain or edema. [] GI: Positive abdominal pain as it of constipation denies nausea denies vomiting denies diarrhea : Denies dysuria. [] Musculoskeletal: Denies back pain or joint pain. [] Integument: Denies rash. [] Neurologic: Denies headache, focal weakness or sensory changes. [] Endocrine: Denies polyuria or polydipsia. [] Lymphatic: Denies swollen glands. [] Psychiatric: Denies depression or anxiety. [] Heart Score: C/O Chest Pain: N/A Risk Factors: Risk Factors: DM, Current or recent (<one month) smoker, HTN, HLP, family history of CAD, obesity. Risk Scores: Score 0 - 3: 2.5% MACE over next 6 weeks - Discharge Home Score 4 - 6: 20.3% MACE over next 6 weeks - Admit for Clinical Observation Score 7 - 10: 72.7% MACE over next 6 weeks - Early Invasive Strategies Allergies: Allergies: Allergies Coded Allergies Type Severity Reaction Last Updated Verified No Known Drug Allergies 05/04/17 No Physical Exam: PE: Constitutional: Well developed, well nourished, no acute distress, non-toxic appearance. [] HENT: Normocephalic, atraumatic, bilateral external ears normal, oropharynx moist, no oral exudates, nose normal. [] Eyes: PERRLA, EOMI, conjunctiva normal, no discharge. [] Neck: Normal range of motion, no tenderness, supple, no stridor. [] Cardiovascular:Heart rate regular rhythm, no murmur [] Lungs & Thorax: Bilateral breath sounds clear to auscultation [] Abdomen: Bowel sounds normal, soft, no tenderness, no masses, no pulsatile masses. [] Skin: Warm, dry, no erythema, no rash. [] Back: No tenderness, no CVA tenderness. [] Extremities: No tenderness, no cyanosis, no clubbing, ROM intact, no edema. [] Neurologic: Alert and oriented X 3, normal motor function, normal sensory function, no focal deficits noted. [] Psychologic: Affect normal, judgement normal, mood normal. [] Current Patient Data: Labs: Laboratory Tests Test 10/17/20 00:02 Urine Collection Type Unknown Urine Color Yellow Urine Clarity Clear Urine pH 6.0 (<5.0-8.0) Urine Specific [place] 1.010 (1.000-1.030) Urine Protein Negative mg/dL (NEG-TRACE) Urine Glucose (UA) Negative mg/dL (NEG) Urine Ketones (Stick) Negative mg/dL (NEG) Urine Blood Negative (NEG) Urine Nitrite Negative (NEG) Urine Bilirubin Negative (NEG) Urine Urobilinogen Dipstick 0.2 mg/dL (0.2 mg/dL) Urine Leukocyte Esterase Negative (NEG) Urine RBC 0 /HPF (0-2) Urine WBC Occ /HPF (0-4) Urine Squamous Epithelial Cells Few /LPF Urine Bacteria 0 /HPF (0-FEW) Vital Signs: Vital Signs Date Time Temp Pulse Resp B/P (MAP) Pulse Ox O2 Delivery O2 Flow Rate FiO2 10/17/20 00:18 98.2 76 16 158/70 (99) 100 Room Air 98.2 EKG: EKG: [] Radiology/Procedures: Radiology/Procedures: [] Course & Med Decision Making: Course & Med Decision Making Pertinent Labs and Imaging studies reviewed. (See chart for details) [] Patient exam benign. Decided against radiologic imaging based on HPI and physical exam. Patient will be discharged home with a auto of magnesium citrate. Sonon Disclaimer: Duc Disclaimer: This electronic medical record was generated, in whole or in part, using a voice recognition dictation system. Departure Departure Impression: Primary Impression: Constipation Disposition: 01 HOME / SELF CARE / HOMELESS Condition: STABLE Referrals: DAVID DONOVAN (PCP) Patient Instructions: Constipation, Adult MARLEY OCASIO I DO October 17, 2020 00:32
[2020-10-17] MEDS ORDERED: MAGNESIUM CITRATE 296 ML SOLUTION. PO ONE (01:00)
== END 2020-10-17 00:40 | disposition home or self-care (01) ==
LOC: ER 23:49
DX: K59.00 Constipation, unspecified (principal); R10.12 Left upper quadrant pain
CPT/HCPCS: 81001; 99283